=== PATIENT | female | born 1985 | race American Indian/Alaskan Native ===

== ENCOUNTER 2016-09-28 15:55 | Emergency (ER) | payer SELFPAY ==
[2016-09-28 16:39] VITALS: BP 114/64
== END 2016-09-28 19:07 | disposition left against medical advice (07) ==
LOC: ED 15:55
DX: M54.2 Cervicalgia (principal); M25.512 Pain in left shoulder; V89.2XXA Person injured in unspecified motor-vehicle accident, traffic, initial encounter; Y93.89 Activity, other specified; Y99.9 Unspecified external cause status; Y92.410 Unspecified street and highway as the place of occurrence of the external cause; Z53.21 Procedure and treatment not carried out due to patient leaving prior to being seen by health care provider